=== PATIENT | male | born 1995 | race Caucasian/White ===

== ENCOUNTER 2025-01-20 03:49 | Emergency (ER) | payer OTHER ==
[~2025-01-20] VITALS: Ht 175.3 cm; Wt 69.0 kg
[2025-01-20 03:52] VITALS: O2SAT 98
[2025-01-20] MEDS: TRANEXAMIC ACID 1,000MG/10ML IV ONE (04:11)
[2025-01-20] MEDS ORDERED: AMOX1TAB16 MT (04:39)
[2025-01-20] MEDS: ONDANSETRON HCL 4MG/2ML INJ IM ONE (04:43)
[2025-01-20 04:48] LABS: BASOPHILS % 0.3 % (0.0-2.0); EOSINOPHILS % 0.4 % (0.0-5.0); HEMATOCRIT. 38.3 % (42.0-52.0); LYMPHOCYTES % 37.8 % (20.0-50.0); MEAN CORPUSCULAR HEMOGLOBIN 27.9 pg (28.0-32.0); MEAN CORPUSCULAR HGB CONC 33.9 g/dL (31.0-37.0); MEAN CORPUSCULAR VOLUME 82.4 fL (80.0-94.0); MONOCYTES % 6.5 % (2.0-8.0); PLATELET 360 x1000/uL (130-400); RED BLOOD CELL COUNT 4.65 mill/uL (4.7-6.1); RED CELL DISTRIBUTION WIDTH 14.2 % (11.6-14.6); WHITE BLOOD COUNT 9.9 x1000/uL (4.5-11.0)
[2025-01-20] MEDS: ACETAMINOPHEN 325MG TABLET PO ONE (05:24)
[2025-01-20 06:14] VITALS: BP 121/89; PULSE 94; RESP 17; TEMP 36.5; O2SAT 100
[2025-01-20] MEDS ORDERED: OXYMETAZOLINE HCL NASAL SPRAY 15ML BOTHNSTRLS SCH (09:00)
== END 2025-01-20 06:16 | disposition home or self-care (01) ==
LOC: ER 03:49
DX: R04.0 Epistaxis (principal); J45.909 Unspecified asthma, uncomplicated
CPT/HCPCS: 85025; 36415; 30901; 96372; 99284; J2405; Z7610 ×2; 99283; A4606